=== PATIENT | male | born 1980 | race Caucasian/White ===

== ENCOUNTER 2018-10-15 23:03 | Emergency (ER) | payer SELFPAY ==
[~2018-10-15] VITALS: Ht 182.9 cm; Wt 86.2 kg
[~2018-10-15 23:03] MED LIST: ACHD5005 PO; AMOX500C2 PO; CPR500T PO; CYCL10TA9; HYDR1CAP2; IBUP-792; NAPR-243 PO; naproxen
--- OUTSIDE RECORDS SUMMARY | 2018-10-15 23:09 | XMS REPORT ---
Author Author REJI PONCE Organization [facility] Address [address] [place] [address] Care Team Providers Care Pug Mill Operator Helper Name Role Phone REJI PONCE Unavailable PROBLEMS Type Condition ICD9-CM Code AOO08-TE Code Onset Dates Condition Status SNOMED Code Problem Anxiety state, unspecified 300.00 Active 188127496 Problem Acute pharyngitis 462 Active 149470456 Problem Lumbago 724.2 Active 448800567 Problem Pain in joint, lower leg 719.46 Active 402989782 ALLERGIES No Information ENCOUNTERS Encounter Location Date Diagnosis [place] [id number] [place] [address] Mar, [place] [id number] [place] [address] Mar, [facility] [address] [address] 18 Mar, 2018 Abscess of right external ear H60.01 and Hematoma of right external ear, subsequent encounter S00.431D [place] [id number] [place] [address] 12 Mar, 2018 Lesion of ear H93.90 [place] [address] [address] Jan, [place] [address] [place] [id number] [place] [address] Jan, [facility] [address] [place], [place] [id number] May, [facility] [address], [place] [phone] Oct, IMMUNIZATIONS No Known Immunizations SOCIAL HISTORY Never Assessed REASON FOR VISIT sahu orders PLAN OF CARE VITAL SIGNS MEDICATIONS Medication Instructions Dosage Frequency Start Date End Date Duration Status Levaquin 500 MG Orally Once a day 1 tablet 24h Mar, Apr, 10 day(s) Active Dolphin 5-325 MG Orally every 6 hrs 1 tablet as needed 6h Mar, Active RESULTS No Results PROCEDURES No Known procedures INSTRUCTIONS MEDICATIONS ADMINISTERED No Known Medications
--- OUTSIDE RECORDS SUMMARY | 2018-10-15 23:09 | XMS REPORT ---
Author Author [facility] Address [address] [place] [address] Care Team Providers Care Psychiatric Clinician Name Role Phone DEVON SHLOMO Unavailable PROBLEMS Type Condition ICD9-CM Code NOG33-FL Code Onset Dates Condition Status SNOMED Code Problem Anxiety state, unspecified 300.00 Active 334321013 Problem Acute pharyngitis 462 Active 051369736 Problem Lumbago 724.2 Active 784249814 Problem Pain in joint, lower leg 719.46 Active 765639233 ALLERGIES No Known Allergies ENCOUNTERS Encounter Location Date Diagnosis [place] [address] [place] [id number] [place] [address] Mar, [facility] [address] [address] [id number] [place] [address] Mar, [facility] [address] [place] [id number] [place] [address] 18 Mar, 2018 Abscess of right external ear H60.01 and Hematoma of right external ear, subsequent encounter S00.431D [place] [address] [place] [id number] [place] [address] 12 Mar, 2018 Lesion of ear H93.90 [facility] [address] [place] [id number] [place] [address] Jan, [place] [address] [address] Jan, [facility] [address] [place], [place] [phone] May, [facility] [address] [place] [phone] Oct, IMMUNIZATIONS No Known Immunizations SOCIAL HISTORY Never Assessed REASON FOR VISIT Ear swelling JStrasserRN PLAN OF CARE Activity Details Follow Up prn Reason: VITAL SIGNS Height 72 in 2018-04-15 Weight 196.8 lbs 2018-04-15 Temperature 98.1 degrees Fahrenheit 2018-04-15 Heart Rate 76 bpm 2018-04-15 Respiratory Rate 20 2018-04-15 BMI 26.69 kg/m2 2018-04-15 Blood pressure systolic 120 mmHg 2018-04-15 Blood pressure diastolic 80 mmHg 2018-04-15 MEDICATIONS Medication Instructions Dosage Frequency Start Date End Date Duration Status Levaquin 500 MG Orally Once a day 1 tablet 24h Mar, Mar, 7 days Active Bactrim DS 800-160 MG Orally twice daily 1 tablet Mar, Mar, 10 day(s) Active RESULTS No Results PROCEDURES No Known procedures INSTRUCTIONS MEDICATIONS ADMINISTERED No Known Medications
--- OUTSIDE RECORDS SUMMARY | 2018-10-15 23:09 | XMS REPORT ---
Author Author IRINA EDWARDS Organization [facility] Address [address] [place] [address] Care Team Providers Care Forklift Supervisor Name Role Phone IRINA EDWARDS Unavailable PROBLEMS Type Condition ICD9-CM Code [id number] Code Onset Dates Condition Status SNOMED Code Problem Anxiety state, unspecified 300.00 Active 195836103 Problem Acute pharyngitis 462 Active 241630993 Problem Lumbago 724.2 Active 106006245 Problem Pain in joint, lower leg 719.46 Active 886346234 ALLERGIES No Known Allergies ENCOUNTERS Encounter Location Date Diagnosis [facility] [address] [address] Mar, [facility] [address] [address] Mar, [facility] [address] [address] 18 Mar, 2018 Abscess of right external ear H60.01 and Hematoma of right external ear, subsequent encounter S00.431D [place] [address] [address] 12 Mar, 2018 Lesion of ear H93.90 [facility] [address] [address] 14 Jan, 2015 [facility] [address] [address] Jan, [facility] [address] [place] [phone] May, [facility] [address] [place], [place] [phone] Oct, IMMUNIZATIONS No Known Immunizations SOCIAL HISTORY Never Assessed REASON FOR VISIT Ear c/o, PT has a swollen area on the inner/upper part of right ear that began two weeks ago-Alexis LANCASTER PLAN OF CARE Activity Details Follow Up prn Reason:ear cyst VITAL SIGNS Height 72 in 2018-04-09 Weight 202.4 lbs 2018-04-09 Temperature 98.1 degrees Fahrenheit 2018-04-09 Heart Rate 82 bpm 2018-04-09 Respiratory Rate 18 2018-04-09 BMI 27.45 kg/m2 2018-04-09 Blood pressure systolic 154 mmHg 2018-04-09 Blood pressure diastolic 90 mmHg 2018-04-09 MEDICATIONS Unknown Medications RESULTS No Results PROCEDURES Procedure Date Ordered Result Body Site I&D ABSCESS April 09, 2018 CULTURE, BACTERIA, OTHER April 09, 2018 INSTRUCTIONS MEDICATIONS ADMINISTERED No Known Medications
--- OUTSIDE RECORDS SUMMARY | 2018-10-15 23:09 | XMS REPORT ---
Author Author MICHELAESTHER [facility] Address [address] [place] [address] Care Team Providers Care Radiological Equipment Specialist Name Role Phone ESTHER ABERNATHY Unavailable PROBLEMS Type Condition ICD9-CM Code [id number] Code Onset Dates Condition Status SNOMED Code Problem Anxiety state, unspecified 300.00 Active 608074718 Problem Acute pharyngitis 462 Active 984267572 Problem Lumbago 724.2 Active 078067334 Problem Pain in joint, lower leg 719.46 Active 299782824 ALLERGIES No Information ENCOUNTERS Encounter Location Date Diagnosis [address] [address] Mar, [facility] [address] [place] [address] Mar, [facility] [address] [address] 18 Mar, 2018 Abscess of right external ear H60.01 and Hematoma of right external ear, subsequent encounter S00.431D [address] [address] 12 Mar, 2018 Lesion of ear H93.90 [facility] [address] [address] Jan, [place] [address] [address] Jan, [facility] [address] [place] [phone] May, [facility] [address] [place] [phone] Oct, IMMUNIZATIONS No Known Immunizations SOCIAL HISTORY Never Assessed REASON FOR VISIT referral request PLAN OF CARE VITAL SIGNS MEDICATIONS Unknown Medications RESULTS No Results PROCEDURES No Known procedures INSTRUCTIONS MEDICATIONS ADMINISTERED No Known Medications
--- OUTSIDE RECORDS SUMMARY | 2018-10-15 23:09 | XMS REPORT | Continuity of Care Document ---
Demographics Preferred Language Unknown Marital Status Unknown Christianity Affiliation Unknown Race Unknown Ethnic Group Unknown Author Author [facility] Address Unknown Phone Unavailable Allergies There is no data. Medications There is no data. Problems Date Dx Coded Attending Type Code Diagnosis Diagnosed By 11/12/2012 300.00 ANXIETY UNSPEC 11/12/2012 719.46 KNEE PAIN 11/12/2012 724.2 BACK PAIN, LOWER Procedures There is no data. Results There is no data. Encounters ACCT No. Visit Date/Time Discharge Status Pt. Type Provider Facility Loc./Unit Complaint [id number] 11/12/2012 09:38:00 11/12/2012 23:59:59 CLS Outpatient
[2018-10-15] MEDS ORDERED: NS IV 1000 ML 1,000 ML IV ONE (23:36)
[2018-10-15] MEDS ORDERED: KETOROLAC 30 MG/ML VIAL IVP ONE (23:45)
[2018-10-15 23:52] LABS: BASOPHILS % (AUTO) 0 % (0-10); EOSINOPHILS # (AUTO) 0.1 10^3/uL (0.0-0.3); EOSINOPHILS % (AUTO) 1 % (0-10); HEMATOCRIT 44 % (40-54); LYMPHOCYTES % (AUTO) 21 % (12-44); MEAN CORPUSCULAR HEMOGLOBIN 30 PG (25-34); MEAN CORPUSCULAR HGB CONC 32 G/DL (32-36); MEAN CORPUSCULAR VOLUME 92 FL (80-99); MONOCYTES # (AUTO) 0.9 X 10^3 (0.0-1.0); MONOCYTES % (AUTO) 9 % (0-12); NEUTROPHILS # (AUTO) 6.5 X 10^3 (1.8-7.8); NEUTROPHILS % (AUTO) 69 % (42-75); PLATELET COUNT 295 10^3/uL (130-400); RED BLOOD COUNT 4.75 10^6/uL (4.35-5.85); RED CELL DISTRIBUTION WIDTH 13.2 % (10.0-14.5); WHITE BLOOD COUNT 9.5 10^3/uL (4.3-11.0)
[2018-10-16 00:14] LABS: ALANINE AMINOTRANSFERASE 34 U/L (0-55); ALBUMIN 3.9 GM/DL (3.2-4.5); ALKALINE PHOSPHATASE 93 U/L (40-136); BILIRUBIN,TOTAL 0.2 MG/DL (0.1-1.0); BUN/CREATININE RATIO 17; CALCIUM 8.9 MG/DL (8.5-10.1); CARBON DIOXIDE 22 MMOL/L (21-32); CHLORIDE 106 MMOL/L (98-107); CREATININE SERUM 0.96 MG/DL (0.60-1.30); GFR ESTIMATED > 60; GLUCOSE 125 MG/DL (70-105); POTASSIUM 4.1 MMOL/L (3.6-5.0); SODIUM 139 MMOL/L (135-145); TOTAL PROTEIN 6.3 GM/DL (6.4-8.2)
[2018-10-16 00:49] LABS: BILIRUBIN,URINE NEGATIVE (NEGATIVE); CLARITY,URINE CLEAR; COLOR,URINE YELLOW; GLUCOSE, URINE (UA) NEGATIVE (NEGATIVE); KETONES,URINE NEGATIVE (NEGATIVE); LEUKOCYTE ESTERASE ,URINE 1+ (NEGATIVE); NITRITE,URINE NEGATIVE (NEGATIVE); PH,URINE 6 (5-9); PROTEIN,URINE 1+ (NEGATIVE); UROBILINOGEN,URINE NORMAL (NORMAL)
[2018-10-16 00:58] LABS: BACTERIA,URINE NEGATIVE /HPF; CALCIUM OXALATE CRYSTALS,UR FEW /LPF; RBC,URINE 50-100 /HPF
[2018-10-16] MEDS ORDERED: GLYCOPYRROLATE 0.2 MG/ML (ROBINUL) 2 ML VIAL IV ONE (01:45)
--- NOTE | 2018-10-16 01:48 | ED Abdominal Pain ---
General Chief Complaint: Back Problems Stated Complaint: POSSIBLE KIDNEY STONES Nursing Triage Note: INTERMITTANT RIGHT FLANK PAIN. Sepsis Screen: No Definite Risk Source of Information: Patient Exam Limitations: No Limitations History of Present Illness Date Seen by Provider: Oct 15, 2018 Time Seen by Provider: 23:07 Initial Comments This 38-year-old man presents to emergency room with right flank pain, nausea, and vomiting. Symptoms started this morning and a been intermittent throughout the day. Shortly before arrival symptoms were severe. He does have a history of renal stones in the past. His primary care providers Evelina Pizarro in [place]. Allergies and Home Medications Allergies Coded Allergies: No Known Drug Allergies (Unverified , 08/25/12) Home Medications Hydrocodone/Acetaminophen 1 Each Tablet, 1-2 EACH PO Q6H PRN for PAIN-MODERATE Prescribed by: NIOCLE DASILVA on 10/16/18 0152 Ondansetron 4 Mg Tab.rapdis, 4 MG PO Q4H Prescribed by: NICOLE DASILVA on 10/16/18 0152 Patient Home Medication List Home Medication List Reviewed: Yes Review of Systems Review of Systems Constitutional: no symptoms reported EENTM: No Symptoms Reported Respiratory: No Symptoms Reported Cardiovascular: No Symptoms Reported Gastrointestinal: See HPI Genitourinary: See HPI Musculoskeletal: no symptoms reported Skin: no symptoms reported Psychiatric/Neurological: No Symptoms Reported Endocrine: No Symptoms Reported Past Ewvmadt-Viibar-Ikzpvp Hx Past Med/Social Hx: Reviewed Nursing Past Med/Soc Hx Patient Social History Alcohol Use: Denies Use Recreational Drug Use: No Smoking Status: Current Everyday Smoker Type Used: Cigarettes 2nd Hand Smoke Exposure: Yes Recent Foreign Travel: No Contact w/Someone Who Travel: No Recent Infectious Disease Expo: No Recent Hopitalizations: No Immunizations Up To Date Tetanus Booster (TDap): Unknown Seasonal Allergies Seasonal Allergies: No Past Medical History Surgeries: No Respiratory: No Cardiac: No Neurological: No Reproductive Disorders: No Genitourinary: Yes Kidney Stones Gastrointestinal: No Musculoskeletal: No Endocrine: No HEENT: No Cancer: No Psychosocial: No Integumentary: No Blood Disorders: No Physical Exam Vital Signs Vital Signs - First Documented 10/15/18 23:15 Temp 96.5 Pulse 83 Resp 16 B/P (MAP) 124/84 (97) Pulse Ox 99 O2 Delivery Room Air Capillary Refill : Less Than 3 Seconds Height/Weight/BMI Height: 6'0" Weight: 190lbs. 0oz. 86.705155cy; 21.31 BMI Method:Stated General Appearance: WD/WN, no apparent distress HEENT: PERRL/EOMI, normal ENT inspection Neck: normal inspection Respiratory: lungs clear, normal breath sounds, no respiratory distress, no accessory muscle use Cardiovascular: regular rate, rhythm, no edema, no murmur Gastrointestinal: normal bowel sounds, soft, tenderness (Minimal in right mid abdomen) Extremities: normal inspection, no pedal edema Neurologic/Psychiatric: supervisor riprap placing II-XII nml as tested, no motor/sensory deficits, alert, normal mood/affect, oriented x 3 Skin: normal color, warm/dry Progress/Results/Core Measures Results/Orders Lab Results Laboratory Tests Test 10/15/18 23:45 10/16/18 00:45 Range/Units White Blood Count 9.5 4.3-11.0 10^3/uL Red Blood Count 4.75 4.35-5.85 10^6/uL Hemoglobin 14.0 13.3-17.7 G/DL Hematocrit 44 40-54 % Mean Corpuscular Volume 92 80-99 FL Mean Corpuscular Hemoglobin 30 25-34 PG Mean Corpuscular Hemoglobin Concent 32 32-36 G/DL Red Cell Distribution Width 13.2 10.0-14.5 % Platelet Count 295 130-400 10^3/uL Mean Platelet Volume 10.0 7.4-10.4 FL Neutrophils (%) (Auto) 69 42-75 % Lymphocytes (%) (Auto) 21 12-44 % Monocytes (%) (Auto) 9 0-12 % Eosinophils (%) (Auto) 1 0-10 % Basophils (%) (Auto) 0 0-10 % Neutrophils # (Auto) 6.5 1.8-7.8 X 10^3 Lymphocytes # (Auto) 2.0 1.0-4.0 X 10^3 Monocytes # (Auto) 0.9 0.0-1.0 X 10^3 Eosinophils # (Auto) 0.1 0.0-0.3 10^3/uL Basophils # (Auto) 0.0 0.0-0.1 10^3/uL Sodium Level 139 135-145 MMOL/L Potassium Level 4.1 3.6-5.0 MMOL/L Chloride Level 106 98-107 MMOL/L Carbon Dioxide Level 22 21-32 MMOL/L Anion Gap 11 5-14 MMOL/L Blood Urea Nitrogen 16 7-18 MG/DL Creatinine 0.96 0.60-1.30 MG/DL Estimat Glomerular Filtration Rate > 60 BUN/Creatinine Ratio 17 Glucose Level 125 H 70-105 MG/DL Calcium Level 8.9 8.5-10.1 MG/DL Corrected Calcium 9.0 8.5-10.1 MG/DL Total Bilirubin 0.2 0.1-1.0 MG/DL Aspartate Amino Transf (AST/SGOT) 23 5-34 U/L Alanine Aminotransferase (ALT/SGPT) 34 0-55 U/L Alkaline Phosphatase 93 40-136 U/L Total Protein 6.3 L 6.4-8.2 GM/DL Albumin 3.9 3.2-4.5 GM/DL Urine Color YELLOW Urine Clarity CLEAR Urine pH 6 5-9 Urine Specific [place] 1.020 1.016-1.022 Urine Protein 1+ H NEGATIVE Urine Glucose (UA) NEGATIVE NEGATIVE Urine Ketones NEGATIVE NEGATIVE Urine Nitrite NEGATIVE NEGATIVE Urine Bilirubin NEGATIVE NEGATIVE Urine Urobilinogen NORMAL NORMAL MG/DL Urine Leukocyte Esterase 1+ H NEGATIVE Urine RBC (Auto) 5+ H NEGATIVE Urine RBC 50-100 H /HPF Urine WBC NONE /HPF Urine Squamous Epithelial Cells 2-5 /HPF Urine Crystals PRESENT H /LPF Urine Calcium Oxalate Crystals FEW H /LPF Urine Bacteria NEGATIVE /HPF Urine Casts NONE /LPF Urine Mucus LARGE H /LPF Urine Culture Indicated NO My Orders Orders - NICOLE HERNANDEZ MD Ua Culture If Indicated (10/15/18 23:07) Cbc With Automated Diff (10/15/18 23:36) Comprehensive Metabolic Panel (10/15/18 23:36) Saline Lock/Iv-Start (10/15/18 23:36) Ns Iv 1000 Ml (Sodium Chloride 0.9%) (10/15/18 23:36) Ketorolac Injection (Toradol Injection) (10/15/18 23:45) Ct Abd/Pelvis Wo(Kidney Stone) (10/16/18 00:59) Glycopyrrolate Injection (Robinul Inject (10/16/18 01:45) Abdomen/Kub 1view (10/16/18 01:35) Medications Given in ED Current Medications Medications Dose Ordered Sig/Simran Route Start Time Stop Time Status Last Admin Dose Admin Glycopyrrolate 0.2 mg ONCE ONCE IV 10/16/18 01:45 10/16/18 01:46 DC 10/16/18 01:46 0.2 MG Ketorolac Tromethamine 15 mg ONCE ONCE IVP 10/15/18 23:45 10/15/18 23:46 DC 10/15/18 23:45 15 MG Sodium Chloride 1,000 ml @ 0 mls/hr Q0M ONCE IV 10/15/18 23:36 10/15/18 23:38 DC 10/15/18 23:45 0 MLS/HR Vital Signs/I&O 10/15/18 10/15/18 10/16/18 23:15 23:45 01:58 Temp 96.5 96.5 97.0 Pulse 83 70 Resp 16 16 B/P (MAP) 124/84 (97) 133/88 (103) Pulse Ox 99 98 O2 Delivery Room Air Room Air Blood Pressure Mean: 97 Progress Progress Note : Progress Note Patient was treated with Toradol, IV fluids, and Robinul. Ureteral stone was identified on CT. Symptoms were controlled the time of dismissal. See prescriptions or discharge instructions. Diagnostic Imaging Diagonstic Imaging: CT Plain Films/CT/US/NM/MRI: abdomen, pelvis Comments CT abdomen and pelvis viewed by me and stopped rad report reviewed. There is a proximal right ureteral stone with mild hydronephrosis. Diagonstic Imaging: Xray Plain Films/CT/US/NM/MRI: abdomen, pelvis Comments X-ray of the abdomen and pelvis demonstrated calcific density in the right upper quadrant consistent with ureteral stone seen on CT. Departure Impression Primary Impression: Right ureteral stone Additional Impressions: Right flank pain Nausea and vomiting Qualified Codes: R11.2 - Nausea with vomiting, unspecified Disposition: 01 HOME, SELF-CARE Condition: Improved Departure-Patient Inst. Decision time for Depature: 01:40 Referrals: NO,LOCAL PHYSICIAN (PCP) Primary Care Physician JUAN ADAMS MD Patient Instructions: Kidney Stones in Adults Add. Discharge Instructions: Drink plenty of clear liquids. Use ibuprofen up to 600 mg every 6 hours as needed for pain. Add hydrocodone as prescribed for pain not controlled by ibuprofen. Follow-up with your primary care provider or a urologist as soon as possible. Return to the emergency room if you have worsening symptoms. Strain your urine and bring any stones collected with you to your follow-up appointment. All discharge instructions reviewed with patient and/or family. Voiced understanding. Scripts Ondansetron (Ondansetron Odt) 4 Mg Tab.rapdis 4 MG PO Q4H, #10 TAB Prov: NICOLE HERNANDEZ MD 10/16/18 Hydrocodone/Acetaminophen (Hydrocodone-Acetamin 5-325 mg) 1 Each Tablet 1-2 EACH PO Q6H PRN for PAIN-MODERATE, #10 TAB Prov: NICOLE HERNANDEZ MD 10/16/18 NICOLE HERNANDEZ MD Oct 16, 2018 01:48
[2018-10-16] MEDS ORDERED: HYDR-3812 PO (01:52)
[2018-10-16] MEDS ORDERED: ONDA4TAB11 PO (01:52)
[2018-10-16 01:58] VITALS: BP 133/88
--- NOTE | 2018-10-16 06:16 | Diagnostic Imaging Report ---
INDICATION: Right-sided abdominal pain. COMPARISON: CT abdomen and pelvis performed same day at 1:10 AM. FINDINGS: The 4 mm proximal right ureteral stone is noted at the inferior aspect of the right renal fossa shadow. Punctate left renal calculus is likely present as well. Phleboliths are noted in the left hemipelvis. Moderate volume of colonic stool. Nonobstructive bowel gas pattern. IMPRESSION: Patient's known right ureteral and left renal stones are radiographically apparent on this exam. Dictated by: Dictated on workstation # [id number]
--- NOTE | 2018-10-16 06:43 | Diagnostic Imaging Report ---
PROCEDURE: CT urinary tract, rule out kidney stone. TECHNIQUE: Multiple contiguous axial images were obtained through the abdomen and pelvis without the use of intravenous contrast. INDICATION: Right flank pain. COMPARISON: CT abdomen and pelvis of 08/06/2012 FINDINGS: Evaluation of the abdominal viscera is mildly limited without contrast. Lower chest: The lung bases are clear. No pericardial or pleural effusion. Peritoneum: No free intraperitoneal air or fluid. Liver and biliary system: There are a few scattered circumscribed hypodensities within the liver that have not substantially changed since 2012 examination and should be considered benign in nature given long-term stability. The dominant focus is in the superior right hepatic lobe measuring 1.4 x 0.8 cm (image 17, series 2). Gallbladder is contracted without radiopaque gallstones. No biliary duct dilatation. Spleen and Pancreas: Spleen is normal. Unenhanced pancreas is grossly normal. Adrenals: Normal. tract: A partially duplicated collecting system is present on the right with fusion of the ureters in their proximal to mid aspect. The lower pole ureter has a 4 mm stone just distal to the UPJ resulting in minimal dilatation of the calyces in the lower pole of the right kidney. There are additional bilateral 2-3 mm nonobstructing stones within the kidneys. No left ureteral calculi. Urinary bladder is normal without intraluminal calculi. Prostate is not enlarged. GI tract: Stomach is decompressed. No bowel obstruction. No pericolonic inflammatory changes. Normal appendix. Moderate volume of colonic stool. Vasculature and Lymph nodes: Normal caliber aorta. No abdominal or pelvic lymphadenopathy. Musculoskeletal: No concerning osseous lesion. IMPRESSION: 1. 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 2. Additional bilateral punctate nonobstructing renal stones. 3. Findings are in agreement with the preliminary report. Dictated by: Dictated on workstation # [id number]
== END 2018-10-16 01:58 | disposition home or self-care (01) ==
LOC: EDUNIT# 23:03 → ER 23:04
DX: N13.2 Hydronephrosis with renal and ureteral calculous obstruction (principal); F17.210 Nicotine dependence, cigarettes, uncomplicated
CPT/HCPCS: 36415; 74018; 74176; 80053; 81000; 85025

== ENCOUNTER 2018-10-21 03:58 | Emergency (ER) | payer SELFPAY ==
[~2018-10-21 03:58] MED LIST changes: +HYDR-3812 PO; +ONDA4TAB11 PO
--- OUTSIDE RECORDS SUMMARY | 2018-10-21 04:05 | XMS REPORT | Continuity of Care Document ---
Demographics Preferred Language Unknown Marital Status Unknown Baptism Affiliation Unknown Race Unknown Ethnic Group Unknown Author Author [facility] Address Unknown Phone Unavailable Allergies There is no data. Medications There is no data. Problems Date Dx Coded Attending Type Code Diagnosis Diagnosed By 11/12/2012 300.00 ANXIETY UNSPEC 11/12/2012 719.46 KNEE PAIN 11/12/2012 724.2 BACK PAIN, LOWER Procedures There is no data. Results There is no data. Encounters ACCT No. Visit Date/Time Discharge Status Pt. Type Provider Facility Loc./Unit Complaint [id number] 11/12/2012 09:38:00 11/12/2012 23:59:59 CLS Outpatient
== END 2018-10-21 04:25 | disposition left against medical advice (07) ==
LOC: EDUNIT# 03:58 → ER 04:01
DX: N28.9 Disorder of kidney and ureter, unspecified (principal)

== ENCOUNTER 2018-11-17 23:48 | Emergency (ER) | payer SELFPAY, OTHER | END 2018-11-18 03:39 | disposition home or self-care (01) | LOC: ER 23:48 | DX: N20.1 Calculus of ureter (principal); F17.210 Nicotine dependence, cigarettes, uncomplicated; Z87.442 Personal history of urinary calculi ==

== ENCOUNTER 2021-06-29 06:46 | Emergency (ER) | payer SELFPAY ==
[~2021-06-29] VITALS: Ht 182.8 cm; Wt 96.0 kg
[~2021-06-29 06:46] MED LIST changes: -HYDR-3812 PO
[2021-06-29] MEDS ORDERED: morphine INJ 10 MG/ML 1ML (SYR OR VIAL) IVP STA (07:18)
--- NOTE | 2021-06-29 07:22 | ED Abdominal Pain ---
General Chief Complaint: Abdominal/GI Problems Stated Complaint: POSS KIDNEY STONES, LEFT SIDE Source of Information: Patient Exam Limitations: No Limitations History of Present Illness Date Seen by Provider: Jun 29, 2021 Time Seen by Provider: 07:10 Initial Comments Patient is a 40-year-old male who presents to the emergency room with a chief complaint of left flank pain. Patient states he woke up at about 4 AM to get ready for work and at 6 AM had an acute onset of severe left flank pain that he rates a "10". Patient states he has had nausea and dry heaves. He denies any fevers or chills. He is not been able to urinate this morning. States that he has a history of kidney stones but does not recall ever having passed one, they were only identified on imaging studies. He is not followed up with urology. Has not taken anything for the pain. Nothing makes his symptoms any better nothing makes it any worse. Patient has had no prior abdominal surgeries. Den ies burning with urination, urgency or frequency prior to the onset of pain. All other review of systems reviewed and negative except as stated. Timing/Duration: 1-3 Hours Severity/Quality: Severe ("10") Location: Flank (left) Radiation: No Radiation Activities at Onset: None Associated Symptoms: Nausea/Vomiting Allergies and Home Medications Allergies Coded Allergies: No Known Drug Allergies (Unverified , 08/25/12) Home Medications Hydrocodone Bit/Acetaminophen 1 Each Tablet, 1-2 EACH PO Q6H PRN for PAIN- MODERATE Prescribed by: NICOLE DASILVA on 10/16/18 015 Hydrocodone Bit/Acetaminophen 1 Each Tablet, 1-2 EACH PO Q6H PRN for PAIN- MODERATE Prescribed by: NICOLE DASILVA on 11/18/18 0303 Hydrocodone/Acetaminophen 1 Each Tablet, 1 TAB PO Q6H PRN for PAIN-MODERATE (5- 7) Prescribed by: YOLANDA PEDRO on 06/29/21 0811 Ondansetron 4 Mg Tab.rapdis, 4 MG PO Q4H Prescribed by: NICOLE DASILVA on 10/16/18 0152 Ondansetron 4 Mg Tab.rapdis, 4 MG PO Q4H PRN for NAUSEA/VOMITING Prescribed by: NICOLE DASILVA on 11/18/18 0303 Ondansetron 4 Mg Tab.rapdis, 4 MG PO Q8H PRN for nausea Prescribed by: YOLANDA PEDRO on 06/29/21 0810 Tamsulosin HCl 0.4 Mg Cap, 0.4 MG PO DAILY Prescribed by: YOLANDA PEDRO on 06/29/21 0810 Patient Home Medication List Home Medication List Reviewed: Yes Review of Systems Review of Systems Constitutional: see HPI EENTM: No Symptoms Reported Respiratory: No Symptoms Reported Cardiovascular: No Symptoms Reported Gastrointestinal: Abdominal Pain (left flank), Nausea, Vomiting ("dry heaves") Genitourinary: Other (unable to urinate) Skin: no symptoms reported Psychiatric/Neurological: No Symptoms Reported All Other Systems Reviewed Negative Unless Noted: Yes Past Bmsfrjt-Yhmcnt-Zrkvcc Hx Immunizations Up To Date Tetanus Booster (TDap): Less than 5yrs PED Vaccines UTD: Yes Seasonal Allergies Seasonal Allergies: No Past Medical History Surgeries: No Respiratory: No Cardiac: No Neurological: No Reproductive Disorders: No Genitourinary: Yes Kidney Stones Gastrointestinal: No Musculoskeletal: No Endocrine: No HEENT: No Cancer: No Psychosocial: No Integumentary: No Blood Disorders: No Physical Exam Vital Signs Vital Signs - First Documented 06/29/21 06:57 Temp 35.7 Pulse 72 Resp 18 B/P (MAP) 143/103 (116) Pulse Ox 97 O2 Delivery Room Air Capillary Refill : Height/Weight/BMI Height: 5'11.00" Weight: 190lbs. 0oz. 86.319677gt; 21.31 BMI Method:Estimated General Appearance: WD/WN, mild distress HEENT: PERRL/EOMI Neck: normal inspection Respiratory: lungs clear, normal breath sounds, no respiratory distress, no accessory muscle use Cardiovascular: regular rate, rhythm Gastrointestinal: normal bowel sounds, soft, tenderness (mild tenderness over the left flank; no suprapubic tenderness) Extremities: normal range of motion, non-tender, normal inspection, no pedal e ro Back: no CVA tenderness Neurologic/Psychiatric: alert, normal mood/affect, oriented x 3 Skin: normal color, warm/dry Progress/Results/Core Measures Results/Orders Lab Results Laboratory Tests Test 06/29/21 07:11 Range/Units Sodium Level 138 135-145 MMOL/L Potassium Level 4.7 3.6-5.0 MMOL/L Chloride Level 106 98-107 MMOL/L Carbon Dioxide Level 19 L 21-32 MMOL/L Anion Gap 13 5-14 MMOL/L Blood Urea Nitrogen 11 7-18 MG/DL Creatinine 0.93 0.60-1.30 MG/DL Estimat Glomerular Filtration Rate 90 BUN/Creatinine Ratio 12 Glucose Level 112 H 70-105 MG/DL Calcium Level 9.2 8.5-10.1 MG/DL My Orders Orders - YOLANDA PEDRO MD Ed Iv/Invasive Line Start (06/29/21 07:18) Basic Metabolic Panel (06/29/21 07:18) Ua Culture If Indicated (06/29/21 07:18) Abdomen/Kub 1view (06/29/21 07:18) Ct Abd/Pelvis Wo(Kidney Stone) (06/29/21 07:18) Ns Iv 1000 Ml (Sodium Chloride 0.9%) (06/29/21 07:30) Ketorolac Injection (Toradol Injection) (06/29/21 07:30) Ondansetron Injection (Zofran Injectio (06/29/21 07:30) Morphine Injection (Morphine Injection (06/29/21 07:18) Medications Given in ED Current Medications Medications Dose Ordered Sig/Simran Route Start Time Stop Time Status Last Admin Dose Admin Ketorolac Tromethamine 15 mg ONCE ONCE IVP 06/29/21 07:30 06/29/21 07:31 DC 06/29/21 07:32 15 MG Ondansetron HCl 4 mg ONCE ONCE IVP 06/29/21 07:30 06/29/21 07:31 DC 06/29/21 07:30 4 MG Vital Signs/I&O 06/29/21 06:57 Temp 35.7 Pulse 72 Resp 18 B/P (MAP) 143/103 (116) Pulse Ox 97 O2 Delivery Room Air Progress Progress Note : Time: 08:16 Progress Note re-evaluated. feeling much better. encouraged him to provide a urine sample for analysis. Also gigven good return precautions and advised to follow up with urology to manage further stones. Diagnostic Imaging Diagonstic Imaging: Xray, CT Plain Films/CT/US/NM/MRI: abdomen Comments [facility] [place], [place] NAME: EMILIE ZIMMER [facility] REC#: [id number] PT STATUS: REG ER : 1980 PHYSICIAN: YOLANDA PEDRO MD ADMIT DATE: 06/29/21/ER Draft Date of Exam:06/29/21 ABDOMEN/KUB 1VIEW INDICATION: left flank pain r/o kidney stone. TECHNIQUE: Single supine view of the abdomen 8:02 AM CORRELATION STUDY: 11/18/2018 FINDINGS: Gas and stool-filled loops of bowel are present. No definitive underlying obstruction. Approximately 2 mm calcification projects over the central aspect left kidney. Approximately 4 mm stone projects over the left transverse process. Additional calcification of the left hemipelvis likely phleboliths. Osseous structures appearing unremarkable. IMPRESSION: 1. Small 2 mm stone projecting over the left kidney. Additional 4 mm stone over the left transverse process. This could potentially reflect calcification in the left ureter. Dictated on workstation # [id number] Dict: 06/29/21 0802 Trans: 06/29/21 0808 HARISH [id number] Interpreted by: CHUCKIE RAMIREZ DO Electronically signed by: [facility] [place], [place] NAME: EMILIE ZIMMER [facility] REC#: [id number] PT STATUS: REG ER : 1980 PHYSICIAN: YOLANDA PEDRO MD ADMIT DATE: 06/29/21/ER Draft Date of Exam:06/29/21 CT ABD/PELVIS WO(KIDNEY STONE) PROCEDURE: CT urinary tract, rule out kidney stone. TECHNIQUE: Multiple contiguous axial images were obtained through the abdomen and pelvis without the use of intravenous contrast. Auto Exposure Controls were utilized during the CT exam to meet ALARA standards for radiation dose reduction. INDICATION: Left flank pain. Patient has history of kidney stones. Comparison is made with prior CT from 10/16/2018. The lung bases are clear. Circumscribed hypodensities in the liver are again noted and appear similar to prior exam. Right lobe lesion is unchanged at approximately 14 mm. The gallbladder is unremarkable. There is no biliary ductal dilatation. Pancreas and spleen are unremarkable. There is no adrenal mass. 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 There is a tiny punctate nonobstructing calculus in the upper pole of the right kidney. There is an approximately 2 to 3 mm nonobstructing calculus in the mid left kidney. The left ureter does contain an approximately 2 mm calculus proximally beyond the UPJ. This does produce mild hydronephrosis. No other ureteral or bladder calculi are detected. Aorta is nonaneurysmal. Bowel loops are normal caliber. There is no free fluid or fluid collection. Prostate is unremarkable. Bony structures are nonacute. IMPRESSION: Bilateral nonobstructing nephrolithiasis. In addition, there is a 2 mm calculus in the proximal left ureter producing mild hydronephrosis. The study is otherwise unremarkable. Dictated on workstation # [id number] Dict: 06/29/21 0800 Trans: 06/29/21 08 LIBBY [id number] Interpreted by: DARRYL PULIDO MD Electronically signed by: Departure Impression Primary Impression: Left ureteral calculus Disposition: HOME, SELF-CARE Condition: Stable Departure-Patient Inst. Decision time for Depature: 08:07 [place]: [facility] [place] PHYSICIAN (PCP) Primary Care Physician JAUN ADAMS MD Patient Instructions: Kidney Stones in Adults Add. Discharge Instructions: Drink lots of water/fluids in order to stay well-hydrated. Use a strainer to strain your urine so that you know when you passed the stone. Follow-up with urology as it appears you have further stones in your kidneys. Take hydrocodone and alternate with ibuprofen as needed for severe pain. I have also given your prescription for Flomax which will increase urinary flow. I have also given your prescription for nausea medications that you can take every 8 hours as needed for nausea. Come back to the emergency room for worsening pain that is not controlled by your pain medicines at home, fever, persistent vomiting or any other emergent concerning symptoms. Scripts Ondansetron (Ondansetron Odt) 4 Mg Tab.rapdis 4 MG PO Q8H PRN for nausea, #15 TAB Prov: YOLANDA PEDRO MD 06/29/21 Hydrocodone/Acetaminophen (Hydrocodone-Acetamin 5-325 mg) 1 Each Tablet 1 TAB PO Q6H PRN for PAIN-MODERATE (5-7), #15 TAB Prov: YOLANDA PEDRO MD 06/29/21 Tamsulosin HCl (Flomax) 0.4 Mg Cap 0.4 MG PO DAILY for 14 Days, #14 CAP Prov: YOLANDA PEDRO MD 06/29/21 YOLANDA PEDRO MD Jun 29, 2021 07:22
[2021-06-29 07:29] LABS: POTASSIUM 4.7 MMOL/L (3.6-5.0)
[2021-06-29 07:30] LABS: CALCIUM 9.2 MG/DL (8.5-10.1)
[2021-06-29] MEDS ORDERED: KETOROLAC 30 MG/ML VIAL IVP ONE (07:30)
[2021-06-29] MEDS ORDERED: NS IV 1000 ML 1,000 ML IV SCH (07:30)
[2021-06-29] MEDS ORDERED: ONDANSETRON 4 MG/2 ML (SDV) Z0FRAN IVP ONE (07:30)
[2021-06-29 07:34] LABS: CREATININE SERUM 0.93 MG/DL (0.60-1.30)
--- NOTE | 2021-06-29 08:08 | Diagnostic Imaging Report ---
INDICATION: left flank pain r/o kidney stone. TECHNIQUE: Single supine view of the abdomen 8:02 AM CORRELATION STUDY: 11/18/2018 FINDINGS: Gas and stool-filled loops of bowel are present. No definitive underlying obstruction. Approximately 2 mm calcification projects over the central aspect left kidney. Approximately 4 mm stone projects over the left transverse process. Additional calcification of the left hemipelvis likely phleboliths. Osseous structures appearing unremarkable. IMPRESSION: 1. Small 2 mm stone projecting over the left kidney. Additional 4 mm stone over the left transverse process. This could potentially reflect calcification in the left ureter. Dictated by: Dictated on workstation # [id number]
--- NOTE | 2021-06-29 08:09 | Diagnostic Imaging Report ---
PROCEDURE: CT urinary tract, rule out kidney stone. TECHNIQUE: Multiple contiguous axial images were obtained through the abdomen and pelvis without the use of intravenous contrast. Auto Exposure Controls were utilized during the CT exam to meet ALARA standards for radiation dose reduction. INDICATION: Left flank pain. Patient has history of kidney stones. Comparison is made with prior CT from 10/16/2018. The lung bases are clear. Circumscribed hypodensities in the liver are again noted and appear similar to prior exam. Right lobe lesion is unchanged at approximately 14 mm. The gallbladder is unremarkable. There is no biliary ductal dilatation. Pancreas and spleen are unremarkable. There is no adrenal mass. 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 There is a tiny punctate nonobstructing calculus in the upper pole of the right kidney. There is an approximately 2 to 3 mm nonobstructing calculus in the mid left kidney. The left ureter does contain an approximately 2 mm calculus proximally beyond the UPJ. This does produce mild hydronephrosis. No other ureteral or bladder calculi are detected. Aorta is nonaneurysmal. Bowel loops are normal caliber. There is no free fluid or fluid collection. Prostate is unremarkable. Bony structures are nonacute. IMPRESSION: Bilateral nonobstructing nephrolithiasis. In addition, there is a 2 mm calculus in the proximal left ureter producing mild hydronephrosis. The study is otherwise unremarkable. Dictated by: Dictated on workstation # [id number]
[2021-06-29] MEDS ORDERED: ACHD5005 PO (08:10)
[2021-06-29] MEDS ORDERED: TMSL.4C PO (08:10)
[2021-06-29] MEDS ORDERED: ONDA4TAB11 PO (08:10)
[2021-06-29 08:55] LABS: BILIRUBIN,URINE NEGATIVE (NEGATIVE); CLARITY,URINE CLEAR; COLOR,URINE YELLOW; GLUCOSE, URINE (UA) NEGATIVE (NEGATIVE); KETONES,URINE NEGATIVE (NEGATIVE); LEUKOCYTE ESTERASE ,URINE NEGATIVE (NEGATIVE); NITRITE,URINE NEGATIVE (NEGATIVE); PROTEIN,URINE TRACE (NEGATIVE)
[2021-06-29 09:18] LABS: BACTERIA,URINE NEGATIVE /HPF; RBC,URINE >100 /HPF; SQUAMOUS EPITHELIAL CELL,UR RARE /HPF
[2021-06-29 09:56] VITALS: BP 116/71
== END 2021-06-29 10:01 | disposition home or self-care (01) ==
LOC: EDUNIT# 06:46 → ER 06:50
DX: N13.2 Hydronephrosis with renal and ureteral calculous obstruction (principal)
CPT/HCPCS: 36415; 74018; 74176; 80048; 81000

== ENCOUNTER 2021-07-23 01:01 | Emergency (ER) | payer SELFPAY ==
[~2021-07-23] VITALS: Ht 182 cm; Wt 96.0 kg
[~2021-07-23 01:01] MED LIST changes: +TMSL.4C PO
[2021-07-23] MEDS ORDERED: ONDANSETRON 4 MG/2 ML (SDV) Z0FRAN IVP ONE (02:30)
[2021-07-23] MEDS ORDERED: fentaNYL INJ 100 MCG/2 ML AMP IVP ONE (02:30)
[2021-07-23] MEDS ORDERED: LACTATED RINGERS 1,000 ML IV ONE ×2 (02:30→02:31)
[2021-07-23] MEDS ORDERED: fentaNYL INJ 100 MCG/2 ML AMP ONE (02:31)
[2021-07-23] MEDS ORDERED: ONDANSETRON 4 MG/2 ML (SDV) Z0FRAN ONE (02:36)
--- NOTE | 2021-07-23 02:37 | ED Abdominal Pain ---
General Chief Complaint: Abdominal/GI Problems Stated Complaint: POSS KIDNEY STONES,LEFT SIDE Nursing Triage Note: PT PRESENTS TO THE ED C/O LEFT SIDED FLANK PAIN THAT ONSET AT 0430 YESTERDAY. PT STATES THIS WAS THE LAST TIME HE WAS ABLE TO PASS MORE THAN A FEW RIBBLES OF URINE WELL. PT HAS A HX OF KIDNESY STONES, SEEN IN THE ED PREVIOUSLY AND TOLD HE HAS A 4MM STONE IN THE LEFT URETER Source of Information: Patient Exam Limitations: No Limitations History of Present Illness Date Seen by Provider: Jul 23, 2021 Time Seen by Provider: 02:00 Initial Comments Patient to the ER by private conveyance chief complaint left flank pain worse tonight. 3 weeks ago he was here with similar symptoms and had a kidney stone. He is never felt the past it although his symptoms did improve. He was given 15 tablets of hydrocodone and has not used pneumonia. He was given some AZO by his donaldo but it did not help his pain. He said having nausea but no vomiting. No fevers or chills. He does not feel like he has had anything to urinate since 4:00 yesterday. Poor oral intake due to pain. He does not follow with urology. No prior history of abdominal surgeries. No medical history. Does not take any medicines routinely. Allergies and Home Medications Allergies Coded Allergies: No Known Drug Allergies (Unverified , 08/25/12) Patient Home Medication List Home Medication List Reviewed: Yes Hydrocodone Bit/Acetaminophen (Lortab 5 Mg Tablet) 1 Each Tablet, 1-2 EACH PO Q6H PRN for PAIN-MODERATE Prescribed by: NICOLE DASILVA on 10/16/18 015 Hydrocodone Bit/Acetaminophen (Lortab 5 Mg Tablet) 1 Each Tablet, 1-2 EACH PO Q6H PRN for PAIN-MODERATE Prescribed by: NICOLE DASILVA on 11/18/18 0303 Hydrocodone/Acetaminophen (Hydrocodone-Acetamin 5-325 mg) 1 Each Tablet, 1 TAB P O Q6H PRN for PAIN-MODERATE (5-7) Prescribed by: YOLANDA PEDRO on 06/29/21 0811 Ondansetron (Ondansetron Odt) 4 Mg Tab.rapdis, 4 MG PO Q4H Prescribed by: NICOLE DASILVA on 10/16/18 0152 Ondansetron (Ondansetron Odt) 4 Mg Tab.rapdis, 4 MG PO Q4H PRN for NAUSEA/VOMITING Prescribed by: NICOLE DASILVA on 11/18/18 0303 Ondansetron (Ondansetron Odt) 4 Mg Tab.rapdis, 4 MG PO Q8H PRN for nausea Prescribed by: YOLANDA PEDRO on 06/29/21 0810 Tamsulosin HCl (Flomax) 0.4 Mg Cap, 0.4 MG PO DAILY Prescribed by: YOLANDA PEDRO on 06/29/21 0810 Review of Systems Review of Systems Constitutional: No chills, No diaphoresis, No fever EENTM: No Blurred Vision, No Double Vision Respiratory: Denies Cough, Denies Shortness of Air Cardiovascular: Denies Chest Pain, Denies Lightheadedness Gastrointestinal: See HPI; Denies Abdominal Pain, Denies Constipated, Denies Diarrhea; Nausea, Poor Fluid Intake; Denies Vomiting Genitourinary: Denies Burning, Denies Discharge Musculoskeletal: see HPI, back pain; No joint pain Skin: No pruritus, No rash Psychiatric/Neurological: Denies Headache, Denies Numbness, Denies Paresthesia All Other Systems Reviewed Negative Unless Noted: Yes Past Mypdsii-Rzvipx-Xvqero Hx Patient Social History Tobacco Use?: Yes Use of E-Cig and/or Vaping dev: No Substance use?: No Alcohol Use?: No Immunizations Up To Date Tetanus Booster (TDap): Less than 5yrs PED Vaccines UTD: Yes Seasonal Allergies Seasonal Allergies: No Past Medical History Surgeries: No Respiratory: No Cardiac: No Neurological: No Reproductive Disorders: No Genitourinary: Yes Kidney Stones Gastrointestinal: No Musculoskeletal: No Endocrine: No HEENT: No Cancer: No Psychosocial: No Integumentary: No Blood Disorders: No Physical Exam Vital Signs Vital Signs - First Documented 07/23/21 01:51 Temp 36.3 Pulse 84 Resp 20 B/P (MAP) 155/102 (119) Pulse Ox 98 O2 Delivery Room Air Capillary Refill : Less Than 3 Seconds Height/Weight/BMI Height: 5'11.00" Weight: 190lbs. 0oz. 86.919923fd; 28.00 BMI Method:Estimated General Appearance: WD/WN, moderate distress HEENT: PERRL/EOMI, pharynx normal Neck: full range of motion, normal inspection Respiratory: lungs clear, normal breath sounds, no respiratory distress, no accessory muscle use Cardiovascular: normal peripheral pulses, regular rate, rhythm Peripheral Pulses: 2+ Radial Pulses (R), 2+ Radial Pulses (L) Gastrointestinal: normal bowel sounds, non tender, soft, no organomegaly Extremities: normal inspection, no pedal edema, normal capillary refill Back: normal inspection; No CVA tenderness (R); CVA tenderness (L) Neurologic/Psychiatric: alert, normal mood/affect, oriented x 3 Skin: normal color, warm/dry Progress/Results/Core Measures Results/Orders Lab Results Laboratory Tests Test 07/23/21 01:54 07/23/21 03:55 Range/Units White Blood Count 13.0 H 4.3-11.0 10^3/uL Red Blood Count 5.14 4.30-5.52 10^6/uL Hemoglobin 15.7 13.3-17.7 g/dL Hematocrit 48 40-54 % Mean Corpuscular Volume 93 80-99 fL Mean Corpuscular Hemoglobin 31 25-34 pg Mean Corpuscular Hemoglobin Concent 33 32-36 g/dL Red Cell Distribution Width 11.8 10.0-14.5 % Platelet Count 287 130-400 10^3/uL Mean Platelet Volume 11.2 9.0-12.2 fL Immature Granulocyte % (Auto) 0 % Neutrophils (%) (Auto) 70 42-75 % Lymphocytes (%) (Auto) 17 12-44 % Monocytes (%) (Auto) 10 0-12 % Eosinophils (%) (Auto) 2 0-10 % Basophils (%) (Auto) 1 0-10 % Neutrophils # (Auto) 9.1 H 1.8-7.8 10^3/uL Lymphocytes # (Auto) 2.3 1.0-4.0 10^3/uL Monocytes # (Auto) 1.3 H 0.0-1.0 10^3/uL Eosinophils # (Auto) 0.3 0.0-0.3 10^3/uL Basophils # (Auto) 0.1 0.0-0.1 10^3/uL Immature Granulocyte # (Auto) 0.0 0.0-0.1 10^3/uL Sodium Level 140 135-145 MMOL/L Potassium Level 4.2 3.6-5.0 MMOL/L Chloride Level 105 98-107 MMOL/L Carbon Dioxide Level 23 21-32 MMOL/L Anion Gap 12 5-14 MMOL/L Blood Urea Nitrogen 20 H 7-18 MG/DL Creatinine 1.34 H 0.60-1.30 MG/DL Estimat Glomerular Filtration Rate 59 BUN/Creatinine Ratio 15 Glucose Level 106 H 70-105 MG/DL Calcium Level 9.4 8.5-10.1 MG/DL Corrected Calcium 9.2 8.5-10.1 MG/DL Total Bilirubin 0.3 0.1-1.0 MG/DL Aspartate Amino Transf (AST/SGOT) 22 5-34 U/L Alanine Aminotransferase (ALT/SGPT) 29 0-55 U/L Alkaline Phosphatase 88 40-136 U/L Total Protein 6.9 6.4-8.2 GM/DL Albumin 4.2 3.2-4.5 GM/DL Lipase 29 8-78 U/L My Orders Orders - RIKKI RENAE Ua Culture If Indicated (07/23/21 01:15) Fentanyl Inj (Sublimaze Injection) (07/23/21 02:30) Ondansetron Injection (Zofran Injectio (07/23/21 02:30) Lactated Ringers (Lr 1000 Ml Iv Solution (07/23/21 02:30) Cbc With Automated Diff (07/23/21 02:30) Comprehensive Metabolic Panel (07/23/21 02:30) Lipase (07/23/21 02:30) Bladder Scan (07/23/21 02:30) Ct Abd/Pelvis Wo(Kidney Stone) (07/23/21 02:37) Fentanyl Inj (Sublimaze Injection) (07/23/21 02:31) Lactated Ringers (Lr 1000 Ml Iv Solution (07/23/21 02:31) Ondansetron Injection (Zofran Injectio (07/23/21 02:36) Abdomen/Kub 1view (07/23/21 02:52) Ketorolac Injection (Toradol Injection) (07/23/21 03:30) Ceftriaxone (Rocephin) (07/23/21 04:30) Medications Given in ED Current Medications Medications Dose Ordered Sig/Simran Route Start Time Stop Time Status Last Admin Dose Admin Fentanyl Citrate 50 mcg ONCE ONCE IVP 07/23/21 02:30 07/23/21 02:33 DC 07/23/21 02:34 50 MCG Ketorolac Tromethamine 30 mg ONCE ONCE IVP 07/23/21 03:30 07/23/21 03:31 DC 07/23/21 03:22 30 MG Lactated Ringer's 1,000 ml @ 0 mls/hr Q0M ONCE IV 07/23/21 02:30 07/23/21 02:33 DC 07/23/21 02:33 1,000 MLS/HR Ondansetron HCl 4 mg STK-MED ONCE .ROUTE 07/23/21 02:36 07/23/21 02:49 DC 07/23/21 03:10 4 MG Ondansetron HCl 8 mg ONCE ONCE IVP 07/23/21 02:30 07/23/21 02:33 DC 07/23/21 02:38 8 MG Vital Signs/I&O 07/23/21 01:51 Temp 36.3 Pulse 84 Resp 20 B/P (MAP) 155/102 (119) Pulse Ox 98 O2 Delivery Room Air Blood Pressure Mean: 119 Progress Progress Note : Time: 02:36 Progress Note Suspect patient still has a left ureteral calculus. Bedside bladder scan demons trates 5 cc of retained urine. We will give him a liter of fluids, fentanyl and Zofran while we check some labs make sure his kidney function is good. We can use Toradol if his kidney function is okay. CT noncontrast of the abdomen and pelvis. Diagnostic Imaging Diagonstic Imaging: CT (Kidney stone study noncontrast) Plain Films/CT/US/NM/MRI: abdomen, pelvis Comments 3 mm stone at the left ureteral orifice is associated with upstream left hydroureter and hydronephrosis with mild left perinephric soft tissue stranding. These are findings consistent with a distal left ureteral obstruction by kidney stone. Reviewed: Reviewed Night Duncan Study, Reviewed by Me Diagonstic Imaging: Xray Plain Films/CT/US/NM/MRI: abdomen (KUB) Comments 2 to 4 mm calcification is seen in the same place as previous KUB from early June Reviewed: Reviewed by Me Departure Impression Primary Impression: Kidney stone on left side Additional Impression: UTI (urinary tract infection) Qualified Codes: N30.00 - Acute cystitis without hematuria Disposition: HOME, SELF-CARE Condition: Stable Departure-Patient Inst. Decision time for Depature: 04:18 Referrals: [facility] [place] ([place]/Family) Primary Care Physician JUAN ADAMS MD Patient Instructions: Kidney Infection (DC), Kidney Stones (DC), Extracorporeal Shock Wave Lithotripsy for Kidney Stones Add. Discharge Instructions: Drink plenty of fluids. Sunday morning call Dr. Adams, urology and request follow-up appointment. Ibuprofen 800 mg every 8 hours as necessary for pain. Hydrocodone 1 to 2 tablets every 6 hours as necessary for breakthrough pain. Heating pads can be helpful for pain. Tamsulosin/Flomax 1 capsule every day until you pass the stone. Cephalexin 500 mg twice a day for the next week. Ondansetron 1 tablet under the tongue every 6 hours as necessary for nausea and/or vomiting. Return to the nearest ER for intractable pain, vomiting etc. All discharge instructions reviewed with patient and/or family. Voiced understanding. Scripts Cephalexin (Cephalexin) 500 Mg Tablet 500 MG PO BID for 7 Days, #14 TAB 0 Refills Prov: RIKKI RENAE 07/23/21 Tamsulosin HCl (Flomax) 0.4 Mg Cap 0.4 MG PO DAILY for 7 Days, #7 CAP 0 Refills Prov: RIKKI RENAE 07/23/21 Hydrocodone/Acetaminophen (Hydrocodone-Acetamin 7.5-325) 1 Each Tablet 1-2 EACH PO Q6H PRN for PAIN-BREAKTHROUGH, #20 TAB 0 Refills Prov: RIKKI RENAE 07/23/21 Ondansetron (Ondansetron Odt) 4 Mg Tab.rapdis 4 MG PO Q6H PRN for NAUSEA/VOMITING, #12 TAB 0 Refills Prov: RIKKI RENAE 07/23/21 Copy Copies To 1: JUAN ADAMS MD, TITUS J Jul 23, 2021 02:37
[2021-07-23 02:45] LABS: BASOPHILS # (AUTO) 0.1 10^3/uL (0.0-0.1); BASOPHILS % (AUTO) 1 % (0-10); EOSINOPHILS # (AUTO) 0.3 10^3/uL (0.0-0.3); EOSINOPHILS % (AUTO) 2 % (0-10); HEMATOCRIT 48 % (40-54); HEMOGLOBIN 15.7 g/dL (13.3-17.7); LYMPHOCYTES # (AUTO) 2.3 10^3/uL (1.0-4.0); LYMPHOCYTES % (AUTO) 17 % (12-44); MEAN CORPUSCULAR HEMOGLOBIN 31 pg (25-34); MEAN CORPUSCULAR HGB CONC 33 g/dL (32-36); MEAN CORPUSCULAR VOLUME 93 fL (80-99); MEAN PLATELET VOLUME 11.2 fL (9.0-12.2); MONOCYTES # (AUTO) 1.3 10^3/uL (0.0-1.0); MONOCYTES % (AUTO) 10 % (0-12); NEUTROPHILS # (AUTO) 9.1 10^3/uL (1.8-7.8); NEUTROPHILS % (AUTO) 70 % (42-75); PLATELET COUNT 287 10^3/uL (130-400)
[2021-07-23 03:01] LABS: ALBUMIN 4.2 GM/DL (3.2-4.5); POTASSIUM 4.2 MMOL/L (3.6-5.0)
[2021-07-23 03:03] LABS: CALCIUM 9.4 MG/DL (8.5-10.1)
[2021-07-23 03:04] LABS: TOTAL PROTEIN 6.9 GM/DL (6.4-8.2)
[2021-07-23 03:06] LABS: BILIRUBIN,TOTAL 0.3 MG/DL (0.1-1.0)
[2021-07-23 03:07] LABS: CREATININE SERUM 1.34 MG/DL (0.60-1.30)
[2021-07-23] MEDS ORDERED: KETOROLAC 30 MG/ML VIAL IVP ONE (03:30)
[2021-07-23 04:03] LABS: BILIRUBIN,URINE NEGATIVE (NEGATIVE); CLARITY,URINE CLEAR; COLOR,URINE YELLOW; GLUCOSE, URINE (UA) NEGATIVE (NEGATIVE); KETONES,URINE NEGATIVE (NEGATIVE); LEUKOCYTE ESTERASE ,URINE NEGATIVE (NEGATIVE); NITRITE,URINE NEGATIVE (NEGATIVE); PROTEIN,URINE NEGATIVE (NEGATIVE)
[2021-07-23 04:21] LABS: BACTERIA,URINE TRACE /HPF; SQUAMOUS EPITHELIAL CELL,UR 0-2 /HPF
[2021-07-23] MEDS ORDERED: CEPH500T PO (04:22)
[2021-07-23] MEDS ORDERED: ONDA4TAB11 PO (04:22)
[2021-07-23] MEDS ORDERED: HYDR-3817 PO (04:22)
[2021-07-23] MEDS ORDERED: TMSL.4C PO (04:22)
[2021-07-23] MEDS ORDERED: cefTRIAXone 1,000 MG in WATER (STERILE) FOR INJECTION 10 ML IV ONE (04:30)
[2021-07-23 04:53] VITALS: BP 126/77
--- NOTE | 2021-07-23 07:07 | Diagnostic Imaging Report ---
PROCEDURE: CT urinary tract, rule out kidney stone. TECHNIQUE: Multiple contiguous axial images were obtained through the abdomen and pelvis without the use of intravenous contrast. Auto Exposure Controls were utilized during the CT exam to meet ALARA standards for radiation dose reduction. INDICATION: Left flank pain, inability to void COMPARISON: 06/29/2021 FINDINGS: The lung bases demonstrate dependent atelectasis. The heart is normal in size. The liver demonstrates a few hypodense foci which are too small to characterize. There is a hypodense lesion in the superior right liver which is stable since 2018 and likely benign. The spleen appears normal. The pancreas is normal. There is a small 1.5 cm duodenal diverticulum. The pancreas is normal. The right kidney is unremarkable. The adrenal glands appear normal. The left kidney demonstrates perirenal edema with moderate hydroureteronephrosis. There is an obstructing 3 mm calculus at the left ureterovesicular junction. There is a punctate nonobstructing calculus in the left kidney. Additional phleboliths are seen in the left pelvis. The appendix is normal. The bowel loops are nondistended without obstruction. No free fluid or free air is seen. No acute osseous abnormality is identified. IMPRESSION: 1. Obstructing 3 mm calculus at the left ureterovesicular junction causing moderate hydroureteronephrosis. No significant changes from the preliminary report. Dictated by: Dictated on workstation # [id number]
--- NOTE | 2021-07-23 07:15 | Diagnostic Imaging Report ---
History: Abdominal pain TECHNIQUE: Frontal view the abdomen COMPARISON: 06/29/2021. CT from the same day. FINDINGS: There is a punctate calculus in the left kidney. There are phleboliths seen in the left pelvis. The 3 mm calculus at the left ureterovesicular junction is very subtle, better seen on the prior CT. No distended loops of bowel are seen. There is no large collection of free air. IMPRESSION:. The obstructing 3 mm calculus at the left ureterovesicular junction is subtle radiographically and better seen on the prior CT. Dictated by: Dictated on workstation # [id number]
== END 2021-07-23 04:53 | disposition home or self-care (01) ==
LOC: EDUNIT# 01:01 → ER 01:05
DX: N13.2 Hydronephrosis with renal and ureteral calculous obstruction (principal); N39.0 Urinary tract infection, site not specified; Z72.0 Tobacco use
CPT/HCPCS: 36415; 74018; 74176; 80053; 81000; 83690; 85025

== ENCOUNTER 2023-08-20 16:53 | Emergency (ER) | payer SELFPAY ==
[~2023-08-20 16:53] MED LIST changes: +CEPH500T PO; +HYDR-3817 PO
--- NOTE | 2023-08-20 17:25 | ED Lower Extremity ---
General Chief Complaint: Lower Extremity Stated Complaint: LT LEG LAC AND BRUISING Nursing Triage Note: PT AMB TO [facility], PT CO OF L LOWER EXT PAIN AND BRUISING. PT STATES 8/10 PAIN. TRIPPED OVER TELEPHONE WIRE. History of Present Illness Date Seen by Provider: Aug 20, 2023 Time Seen by Provider: 17:23 Initial Comments 43-year-old male presents with left lower extremity pain and bruising. He reports that 5 days ago he tripped over a telephone guidewire and struck his lower leg he has a small abrasion. He is complains of continuing pain and swelling and some discoloration. Patient is unsure when his last tetanus was Allergies and Home Medications Allergies Coded Allergies: No Known Drug Allergies (Unverified , 08/25/12) Patient Home Medication List Home Medication List Reviewed: Yes Cephalexin (Cephalexin) 500 Mg Tablet, 500 MG PO BID Prescribed by: RIKKI RENAE on 07/23/21 042 Hydrocodone Bit/Acetaminophen (Lortab 5 Mg Tablet) 1 Each Tablet, 1-2 EACH PO Q6H PRN for PAIN-MODERATE Prescribed by: NICOLE DASILVA on 10/16/18 015 Hydrocodone Bit/Acetaminophen (Lortab 5 Mg Tablet) 1 Each Tablet, 1-2 EACH PO Q6H PRN for PAIN-MODERATE Prescribed by: NICOLE DASILVA on 11/18/18 030 Hydrocodone/Acetaminophen (Hydrocodone-Acetamin 5-325 mg) 1 Each Tablet, 1 TAB PO Q6H PRN for PAIN-MODERATE (5-7) Prescribed by: YOLANDA PEDRO on 06/29/21 0811 Hydrocodone/Acetaminophen (Hydrocodone-Acetamin 7.5-325) 1 Each Tablet, 1-2 EACH PO Q6H PRN for PAIN-BREAKTHROUGH Prescribed by: RIKKI RENAE on 07/23/21 042 Ondansetron (Ondansetron Odt) 4 Mg Tab.rapdis, 4 MG PO Q4H Prescribed by: NICOLE DASILVA on 10/16/18 015 Ondansetron (Ondansetron Odt) 4 Mg Tab.rapdis, 4 MG PO Q4H PRN for NAUSEA/VOMITING Prescribed by: NICOLE DASILVA on 11/18/18 0303 Ondansetron (Ondansetron Odt) 4 Mg Tab.rapdis, 4 MG PO Q8H PRN for nausea Prescribed by: YOLANDA PEDRO on 06/29/21 08 Ondansetron (Ondansetron Odt) 4 Mg Tab.rapdis, 4 MG PO Q6H PRN for NAUSEA/VOMITING Prescribed by: RIKKI RENAE on 07/23/21 042 Tamsulosin HCl (Flomax) 0.4 Mg Cap, 0.4 MG PO DAILY Prescribed by: YOLANDA PEDRO on 06/29/21 08 Tamsulosin HCl (Flomax) 0.4 Mg Cap, 0.4 MG PO DAILY Prescribed by: RIKKI RENAE on 07/23/21421 Review of Systems Constitutional: see HPI EENTM: no symptoms reported Cardiovascular: no symptoms reported Genitourinary: no symptoms reported Musculoskeletal: see HPI Skin: see HPI Past Stcdtrx-Akgorm-Kajote Hx Patient Social History Tobacco Use?: Yes Tobacco type used: Cigarettes Smoking Status: Current Everyday Smoker Substance use?: No Alcohol Use?: No Pt feels they are or have been: No Immunizations Up To Date Tetanus Booster (TDap): Less than 5yrs PED Vaccines UTD: Yes Influenza Vaccine Up-to-Date: No; Not Current Seasonal Allergies Seasonal Allergies: No Past Medical History Surgery/Hospitalization HX: KIDNEY STONE HX. Surgeries: No Respiratory: No Cardiac: No Neurological: No Reproductive Disorders: No Genitourinary: Yes Kidney Stones Gastrointestinal: No Musculoskeletal: No Endocrine: No HEENT: No Cancer: No Psychosocial: No Integumentary: No Blood Disorders: No Physical Exam Vital Signs Vital Signs - First Documented 08/20/23 17:05 Temp 37.2 Pulse 78 Resp 18 B/P (MAP) 148/73 (98) Pulse Ox 97 Capillary Refill : Less Than 3 Seconds Height, Weight, BMI Height: 5'11.00" Weight: 190lbs. 0oz. [id number]; BMI Method:Estimated General Appearance: WD/WN Cardiovascular: normal peripheral pulses, regular rate, rhythm Respiratory: lungs clear, normal breath sounds Hips: bilateral hip non-tender Legs: left leg abrasions (Left lower leg), left leg ecchymosis (Left lower leg), left leg swelling (Left lower leg) Neurologic/Psychiatric: alert, normal mood/affect, oriented x 3 Skin: ecchymosis, other (Small healing abrasion left ricardo) Progress/Results/Core Measures Results/Orders My Orders Orders - MACKENZIE ALEJANDRE DO Tibia/Fibula, Left, 2 Views (08/20/23 17:22) Dipht/Pertuss(Acell)/Tet Adult (Dipht/Pe (08/20/23 17:30) Vital Signs/I&O 08/20/23 17:05 Temp 37.2 Pulse 78 Resp 18 B/P (MAP) 148/73 (98) Pulse Ox 97 Blood Pressure Mean: 98 Progress Progress Note : Progress Note Patient's x-ray was ordered reviewed with initial interpretation and negative for any acute fractures by me. Patient does have a metallic foreign body but he reports that that is been there since he is about 10 years old and is not in the area of the injury. Patient with contusion/hematoma. Discussed with him supportive care. He is stable and discharged home Departure Impression Primary Impression: Traumatic hematoma of left lower leg Qualified Codes: S80.12XA - Contusion of left lower leg, initial encounter Additional Impression: Contusion of left lower leg, initial encounter Disposition: 01 HOME, SELF-CARE Condition: Stable Departure-Patient Inst. Referrals: [facility] (PCP/Family) Primary Care Physician Patient Instructions: Contusion (DC), Taking care of bruises Add. Discharge Instructions: Fabriico wrap over left lower leg, you may use ice to help with the swelling and discomfort. Tylenol ibuprofen to help with the swelling and discomfort. 4% topical lidocaine with menthol cream or gel use as directed on package. Voltaren/diclofenac cream or gel use as directed on package. All discharge instructions reviewed with patient and/or family. Voiced understanding. MACKENZIE ALEJANDRE DO Aug 20, 2023 17:25
[2023-08-20] MEDS ORDERED: Tetanus/Diphtheria/Pertussis (Acell) ADULT Vaccine 0.5 ML IM ONE (17:30)
--- NOTE | 2023-08-20 17:45 | Diagnostic Imaging Report ---
EXAMINATION: Left tibia/fibular radiograph TECHNIQUE: AP and lateral views of the left tibia and fibula. HISTORY: Leg pain COMPARISON: None available. FINDINGS: Alignment is normal. No fracture is seen. Joint spaces are normal. IMPRESSION: 1. No fracture. Dictated by: Dictated on workstation # [id number]
[2023-08-20 17:50] VITALS: BP 148/73
== END 2023-08-20 17:49 | disposition home or self-care (01) ==
LOC: EDUNIT# 16:53 → ER 16:56
DX: S80.12XA Contusion of left lower leg, initial encounter (principal); F17.210 Nicotine dependence, cigarettes, uncomplicated; Z23 Encounter for immunization; W18.40XA Slipping, tripping and stumbling without falling, unspecified, initial encounter; W22.8XXA Striking against or struck by other objects, initial encounter
CPT/HCPCS: 73590; 90471; 90715